=== PATIENT | female | born 1990 | race African-American/Black ===

== ENCOUNTER 2018-05-12 18:00 | Emergency (ER) | payer SELFPAY ==
[~2018-05-12] VITALS: Ht 165.1 cm; Wt 72.6 kg
[2018-05-12 18:26] VITALS: BP_SYST 125
--- NOTE | 2018-05-12 18:32 | NUR ---
Patient triaged and placed in waiting room. VSS and patient appears in no acute distress at this time. Accompanied by MOTHER, awaiting available bed, and MD notified of need for MSE.
--- NOTE | 2018-05-12 20:02 | NUR ---
Patient to ER bed 4 to gown for evaluation. Side rails up. Report given to LAURA Bradley.
--- NOTE | 2018-05-12 20:15 | NUR ---
Note amy in EDM - 05/13/18 at 0317 by [email or web address] Patient came in complaining of a rash on her hands and feet. Patient states she thinks it is ringworm. SHe said that she was diagnosed for atheletes foot but did not start showing symptoms until a few days ago. Patient says that she has itching and her toe nails are turning black. For home remedies, patient said she tried wiping vinegar and swallowing apple vinegar. Patient says that she has chills, chest pain but no difficulty breathing. Patient denies blood and diarrhea. No history of surgies. Patient admits to drinking, smoking and doing meth. No other injuries/complaints noted. Will continue to monitor.
--- NOTE | 2018-05-12 20:15 | NUR ---
Patient came in complaining of a rash on her hands and feet. Patient states she thinks it is ringworm. SHe said that she was diagnosed for atheletes foot but did not start showing symptoms until a few days ago. Patient says that she has itching and her toe nails are turning black. For home remedies, patient said she tried wiping vinegar and swallowing apple vinegar. Patient says that she has chills, chest pain but no difficulty breathing. Patient denies blood and diarrhea. No history of surgeries. Patient admits to drinking, smoking and doing meth. No other injuries/complaints noted. Will continue to monitor.
--- NOTE | 2018-05-12 20:25 | NUR ---
Urine HCG done, results negative.
[2018-05-12 20:27] LABS: BILIRUBIN,URINE 1+ (NEGATIVE); BLOOD, URINE NEGATIVE (NEGATIVE); CLARITY/URINE SL CLOUDY (CLEAR); COLOR,URINE AMBER (YELLOW); GLUCOSE,URINE NEGATIVE (NEGATIVE); KETONES,URINE 1+ (NEGATIVE); LEUKOCYTE ESTERASE ,URINE NEGATIVE (NEGATIVE); NITRITE, URINE NEGATIVE (NEGATIVE); PH,URINE 5.5 (5.0-8.0); PROTEIN URINE 1+ (NEGATIVE)
[2018-05-12] MEDS ORDERED: methylPREDNISolone SOD SUCC/PF 62.5 MG/ML VIAL IVP ONE (20:30)
[2018-05-12] MEDS ORDERED: methylPREDNISolone SOD SUCC/PF 62.5 MG/ML VIAL IM ONE (20:30)
[2018-05-12] MEDS ORDERED: KETOROLAC TROMETHAMINE 60 MG/2 ML VIAL IM ONE (20:45)
--- NOTE | 2018-05-12 20:48 | NUR ---
Toradol IM and SoluMedrol IM given per MD orders. Patient tolerated well. Will continue to monitor.
[2018-05-12 20:52] LABS: BACTERIA,URINE MODERATE /HPF (None Seen); RBC,URINE 0-3 /HPF (0-3)
[2018-05-12 20:53] LABS: MUCUS,URINE 3+ /LPF (None Seen)
--- NOTE | 2018-05-12 21:10 | NUR ---
Patient resting in bed next to her son, Souleymane Ayala.
[2018-05-12 21:40] VITALS: BP_SYST 125
--- NOTE | 2018-05-12 21:40 | NUR ---
Patient given written and verbal discharge instructions and verbalizes understanding. ER MD Garner discussed with patient the results and treatment provided. Patient in stable condition. ID arm band removed. Rx of Permethrin 5% cream, Itraconazole and Ketoconazole 2% topical cream given. Patient educated on pain management and to follow up with PMD within 2 to 3 days. Pain Scale 4/10. Opportunity for questions provided and answered. Medication side effect fact sheet provided.
== END 2018-05-12 21:40 | disposition home or self-care (01) ==
LOC: SED 18:00
DX: B86 Scabies (principal); B35.1 Tinea unguium; F17.210 Nicotine dependence, cigarettes, uncomplicated; R03.0 Elevated blood-pressure reading, without diagnosis of hypertension
CPT/HCPCS: 81000; 81025; 87086; 96372; 99284; J1885; J2930